=== PATIENT | female | born 1975 | race Caucasian/White ===

== ENCOUNTER 2017-08-07 09:05 | Emergency (ER) | payer OTHER ==
[2017-08-07 09:14] VITALS: RESP 16
--- NOTE | 2017-08-07 09:31 | EDPHY ---
H & P Stated Complaint: Right ankle twisted yesterday Time Seen by Provider: 08/07/17 09:31 HPI/ROS: HPI: This is a 42-year-old female who presents with Chief Complaint: Right ankle twisted yesterday Location: Right lateral ankle Quality: Injury Duration: Yesterday afternoon Signs and Symptoms: No bleeding, no radiation, no numbness, no weakness, no tingling, no incontinence, no decreased range of motion, + mild swelling Timing: Sudden Severity: [id number] Context: Patient reports that 25 years ago she tore the ankle and her right ankle and had surgery. Yesterday she was walking across the street while wearing tennis shoes and as she stepped off the curb, her foot twisted causing immediate pain in the lateral right ankle that is worse with weight-bearing. She has applied ice and taken anti-inflammatories but the pain with use remains. She denies any paresthesias/significant pain. Modifying Factors: See above Comment: ROS: see HPI Constitutional: No fever, no chills, no weight loss Eyes: No blurred vision Respiratory: No shortness of breath, no cough Cardiovascular: No chest pain Gastrointestinal: No nausea, no vomiting no diarrhea Genitourinary: No dysuria Extremities: No myalgias Neurologic: No weakness, no numbness Skin: No rashes Hematologic: No bruising, no bleeding MEDICAL/SURGICAL/SOCIAL HISTORY: Medical history: Generally healthy. Does not take any regular medications. Surgical history: Appendectomy, right ankle surgery Social history: . CONSTITUTIONAL: Pleasant adult white female awake and alert, no obvious distress HEENT: Atraumatic and normocephalic, PERRL, EOMI. Tympanic membranes clear. Oropharynx clear, no exudate and moist pink mucosa. Airway patent. No lymphadenopathy. No meningismus. Cardiovascular: Normal S1/S2, regular rate, regular rhythm, without murmur rub or gallop. PULMONARY/CHEST: Symmetrical and nontender. Clear to auscultation bilaterally. Good air movement. No accessory muscle usage. ABDOMEN: Soft, nondistended, nontender, no rebound, no guarding, no peritoneal signs, no masses or organomegaly. No CVAT. EXTREMITIES: 2/2 pulses, right ankle mild swelling over the lateral malleolus; tenderness to palpation over the calcaneal fibular ligament and the anterior talofibular ligament. Achilles tendon intact. Ankle plantar flexion to 50, dorsiflexion to 20. Foot inversion to 35. no deformities, no clubbing, no cyanosis or edema. NEUROLOGICAL: no focal neuro deficits. GCS 15. SKIN: Warm and dry, no erythema. no rash. Good capillary refill. Source: Patient Exam Limitations: No limitations - Personal History LMP (Females 10-55): 8-14 Days Ago Current Tetanus/Diphtheria Vaccine: Unsure Current Tetanus Diphtheria and Acellular Pertussis (TDAP): Unsure - Medical/Surgical History Hx Asthma: No Hx Chronic Respiratory Disease: No Hx Diabetes: No Hx Cardiac Disease: No Hx Renal Disease: No Hx Cirrhosis: No Hx Alcoholism: No Hx HIV/AIDS: No Hx Splenectomy or Spleen Trauma: No Other PMH: R ankle ligament surgery 1989 - Social History Smoking Status: Never smoked Constitutional: Initial Vital Signs Temperature (C) 37.0 C 08/07/17 09:12 Heart Rate 73 08/07/17 09:12 Respiratory Rate 16 08/07/17 09:12 Blood Pressure 118/75 08/07/17 09:12 O2 Sat (%) 98 08/07/17 09:12 O2 Delivery Mode Room Air Allergies/Adverse Reactions: No Known Allergies Allergy (Unverified 08/07/17 09:12) Home Medications: Medication Instructions Recorded NK [No Known Home Meds] 08/07/17 Medical Decision Making - Diagnostics Imaging Results: Imaging Impressions Ankle X-Ray 08/07/17 09:14 Impression: No acute osseous abnormality seen right ankle. Lateral ankle sprain. Procedures: Procedure: Splint placement. A left ankle air stirrup splint was applied by the Emergency Room burner technician. After application of the splint I returned and re-examined the patient. The splint was adequately immobilizing the joint and distal to the splint the patient's circulation and sensation was intact. ED Course/Re-evaluation: X-ray ordered and ice pack applied. No signs of neurovascular compromise/tenting of skin/compartment syndrome/ extremities and joints examined above and below area of concern and are neurovascularly intact. Left ankle x-ray reviewed via PACs and shows no fracture/dislocation Placed in left ankle splint, crutches provided, partial weight-bearing as tolerated, Ortho follow-up Differential Diagnosis: Differential diagnosis includes but is not limited to ankle sprain, ligament injury, nerve injury, fibular fracture, midfoot fracture. Departure - Departure Disposition: Home, Routine, Self-Care Clinical Impression: Left ankle sprain Qualifiers: Encounter type: initial encounter Involved ligament of ankle: anterior talofibular ligament Qualified Code(s): S93.492A - Sprain of other ligament of left ankle, initial encounter Condition: Good Instructions: Ankle Stirrup Splint (ED), Ankle Sprain (ED) Additional Instructions: Wear ankle splint, partial weight-bearing and use crutches until pain free. Take ibuprofen 600-800 mg every 6-8 hours with food as needed for pain and inflammation. Apply ice for 30 minutes at a time; 2-3 times per day for the next 1-2 days. Follow up with Orthopedics in 5-7 days at which time they will evaluate and recommend with you if conservative management versus surgery is indicated. The x-rays obtained in the emergency department today demonstrate no evidence of an obvious fracture. Sometimes fractures are not obvious on the initial set of x-rays performed in the ED. For this reason, you should have repeat x-rays performed in 7-10 days if you are having any pain exclude the possibility of an occult fracture. Referrals: Joni Connelly MD [Medical Doctor] - As per Instructions
[2017-08-07 10:31] VITALS: PULSE 71; O2SAT 97
[2017-08-07 10:37] VITALS: BP 114/73; TEMP 98.1
== END 2017-08-07 10:37 | disposition home or self-care (01) ==
DX: S93.492A Sprain of other ligament of left ankle, initial encounter (principal); X50.9XXA Other and unspecified overexertion or strenuous movements or postures, initial encounter; Y92.410 Unspecified street and highway as the place of occurrence of the external cause; Y99.8 Other external cause status; Y93.01 Activity, walking, marching and hiking
CPT/HCPCS: L4350